=== PATIENT | female | born 1960 | race American Indian/Alaskan Native ===

== ENCOUNTER 2020-06-23 15:45 | Outpatient (CLI) | payer BC ==
--- NOTE | 2020-06-23 16:23 | Ultrasound Report ---
LEFT BREAST ULTRASOUND INDICATION: Evaluate finding noted previously in the left breast on recent screening mammogram. COMPARISON: 05/22/2020, 05/10/2019. FINDINGS: Targeted ultrasound focused in the left lateral breast was performed to evaluate the site of a previo usly noted finding which was seen in this region on the recent screening mammogram. There is a circum scribed hypoechoic 4 x 2 x 5 mm oval lesion located at the 3:00 position, 3 cm from the nipple. This appears most consistent with a complicated cyst. This would appear to correspond with the mammographi c finding. Additionally, likely an incidental finding, is a 3 x 7 x 2 mm hypoechoic lesion, possibly collection of cysts versus confluent ducts. IMPRESSION: Left breast lesions at the 2:00 and 3:00 positions are probably benign. A six-month follow-up ultraso und is recommended. BI-RADS Category 3: Probably Benign. A "normal" or negative report should not discourage follow up or biopsy of a clinically significant f inding. A written summary of these findings will be mailed to the patient. FURTHER INFORMATION: According to the [employer], yearly mammograms are recommend ed starting at age 40 and continuing as long as a woman is in good health. Breast MRI is recommended for women with an approximately 20-25% or greater lifetime risk of breast cancer, including women wi th a strong family history of breast or ovarian cancer and women who have been treated for Hodgkin's disease. Signer Name: Won Reddy MD Signed: 06/23/2020 4:19 PM Workstation Name: [id number]
== END 2020-06-23 15:46 | disposition home or self-care (01) ==
LOC: SPVWC 15:45
PROVIDERS: ATTEND Surgery
DX: R92.8 Other abnormal and inconclusive findings on diagnostic imaging of breast (principal)